=== PATIENT | female | born 1995 ===

== ENCOUNTER → 2024-03-28 | Outpatient (CLI) | payer OTHER ==
[2024-03-28 19:18] LABS: BASOPHILS ABSOLUTE AUTO 0.02 K/mm3 (0.00-0.23); BASOPHILS PERCENT AUTO 0 % (0-2); EOSINOPHILS PERCENT AUTO 1 % (0-6); Hematocrit 34.9 % (33.0-51.0); Hemoglobin 12.2 g/dL (11.5-16.0); IMMATURE GRAN ABSOLUTE AUTO 0.04 K/mm3 (0.00-0.10); IMMATURE GRAN PERCENT AUTO 1 % (0-1); LYMPHOCYTES ABSOLUTE AUTO 2.22 K/mm3 (0.84-5.20); LYMPHOCYTES PERCENT AUTO 26 % (21-46); MONOCYTES ABSOLUTE AUTO 0.58 K/mm3 (0.16-1.47); MONOCYTES PERCENT AUTO 7 % (4-13); Mean Corpuscular HGB 31.2 pg (26.0-34.0); Mean Corpuscular Volume 89 fL (80-100); Mean Platelet Volume 10.8 fL (9.1-12.4); NEUTROPHILS ABSOLUTE AUTO 5.68 K/mm3 (1.96-9.15); NEUTROPHILS PERCENT AUTO 66 % (41-73); Platelet Count 286 K/mm3 (150-400); RDW Standard Deviation 38.8 fL (35.1-46.3); Red Blood Cell Count 3.91 M/mm3 (3.80-5.20); White Blood Cell Count 8.64 K/mm3 (4.00-11.30)
[2024-04-01 07:19] LABS: HEPATITIS B SURFACE ANTIGEN Negative (Negative)
[2024-04-01 07:27] LABS: HEPATITIS C AB CIA INTERP Negative (Negative); HEPATITIS C ANTIBODY CIA INDEX 0.06 IV
[2024-04-01 07:58] LABS: HIV 1,2 COMBO ANTIGEN/ANTIBODY Negative (Negative)
== END | disposition home or self-care (01) ==
LOC: LAB 18:36 → LAB SHORT 18:36
PROVIDERS: Registered Nurse Community Health
DX: Z34.91 Encounter for supervision of normal pregnancy, unspecified, first trimester (principal)
CPT/HCPCS: 84443; 86803; 87340; 87389

== ENCOUNTER → 2024-03-28 | Outpatient (CLI) | payer OTHER | END | disposition home or self-care (01) | LOC: LAB 18:46 → LAB SHORT 18:46 | DX: Z34.91 Encounter for supervision of normal pregnancy, unspecified, first trimester (principal) | CPT/HCPCS: 87086 ==

== ENCOUNTER → 2024-04-07 | Outpatient (CLI) | payer OTHER ==
[2024-04-10 11:16] LABS: APTIMA MEDIA TYPE Urine; C. TRACHOMATIS BY TMA Negative (Negative); N. GONORRHOEAE BY TMA Negative (Negative); SPECIMEN SOURCE Urine
== END | disposition home or self-care (01) ==
LOC: LAB 18:41 → LAB SHORT 18:41
PROVIDERS: Registered Nurse Community Health
DX: Z34.91 Encounter for supervision of normal pregnancy, unspecified, first trimester (principal)
CPT/HCPCS: 87491; 87591

== ENCOUNTER 2024-06-20 17:03 | Emergency (ER) | payer OTHER ==
[~2024-06-20] VITALS: Ht 170.2 cm; Wt 90.7 kg
[2024-06-20 18:00] LABS: CORONAVIRUS COVID-19 AG Negative (NEGATIVE); INFLUENZA A AG Negative (NEGATIVE); INFLUENZA B AG Negative (NEGATIVE)
[2024-06-20] MEDS ORDERED: RX Prepack Albuterol 1 PREPACK/6.7 GM INH UD ONE (19:30)
== END 2024-06-20 19:35 | disposition home or self-care (01) ==
LOC: ER 17:03
PROVIDERS: Physician Assistant
DX: O99.512 Diseases of the respiratory system complicating pregnancy, second trimester (principal); J06.9 Acute upper respiratory infection, unspecified; Z3A.20 20 weeks gestation of pregnancy
CPT/HCPCS: 87428-QW; 99283; A9270

== ENCOUNTER → 2024-08-13 | Outpatient (CLI) | payer OTHER ==
[2024-08-13 19:17] LABS: Hematocrit 30.4 % (33.0-51.0); Hemoglobin 10.7 g/dL (11.5-16.0)
== END | disposition home or self-care (01) ==
LOC: LAB SHORT 18:34
PROVIDERS: Registered Nurse Community Health
DX: Z34.93 Encounter for supervision of normal pregnancy, unspecified, third trimester (principal)
CPT/HCPCS: 82950; 85014; 85018

== ENCOUNTER → 2024-10-09 | Outpatient (CLI) | payer OTHER ==
[~2024-10-09] MED LIST: ARTIFICIAL TEAR15 M6 BOTHEYES; Cefpodoxime Pr100 MG PO; ESCI10 PO; PRED20 PO; PRENATAL TABLE1 EAC2 PO; Prednisone10 MG PO; VALACYCLOVIR500 M1 PO; VISBIOME 112.51 EACH PO; [UNRECOGNIZED DRUG - OTHER] LEFTEYE
== END ==
LOC: LAB SHORT 17:28 → LAB 17:28
DX: Z34.91 Encounter for supervision of normal pregnancy, unspecified, first trimester (principal)
CPT/HCPCS: 87081; 87150

== ENCOUNTER 2024-10-11 10:36 | Emergency (ER) | payer OTHER ==
[~2024-10-11] VITALS: Ht 170.2 cm; Wt 97.5 kg
[2024-10-11] MEDS ORDERED: PRENATAL TABLE1 EAC2 PO (10:50)
[2024-10-11] MEDS ORDERED: ESCI10 PO (10:50)
[2024-10-11 11:31] LABS: BASOPHILS ABSOLUTE AUTO 0.03 K/mm3 (0.00-0.23); BASOPHILS PERCENT AUTO 0 % (0-2); EOSINOPHILS ABSOLUTE AUTO 0.06 K/mm3 (0.00-0.68); EOSINOPHILS PERCENT AUTO 1 % (0-6); Hematocrit 34.1 % (33.0-51.0); Hemoglobin 11.8 g/dL (11.5-16.0); IMMATURE GRAN ABSOLUTE AUTO 0.05 K/mm3 (0.00-0.10); IMMATURE GRAN PERCENT AUTO 1 % (0-1); LYMPHOCYTES ABSOLUTE AUTO 1.62 K/mm3 (0.84-5.20); LYMPHOCYTES PERCENT AUTO 21 % (21-46); MONOCYTES ABSOLUTE AUTO 0.54 K/mm3 (0.16-1.47); MONOCYTES PERCENT AUTO 7 % (4-13); Mean Corpuscular HGB Conc 34.6 g/dL (31.5-36.5); Mean Corpuscular Volume 90 fL (80-100); Mean Platelet Volume 10.9 fL (9.1-12.4); NEUTROPHILS ABSOLUTE AUTO 5.53 K/mm3 (1.96-9.15); NEUTROPHILS PERCENT AUTO 71 % (41-73); Platelet Count 250 K/mm3 (150-400); RDW Coefficient Variation 12.4 % (11.7-14.2); RDW Standard Deviation 40.1 fL (35.1-46.3); Red Blood Cell Count 3.81 M/mm3 (3.80-5.20); White Blood Cell Count 7.83 K/mm3 (4.00-11.30)
[2024-10-11 11:50] LABS: Albumin, Blood 2.7 g/dL (3.4-5.0); Albumin/Globulin Ratio 0.6 (0.8-1.8); Bilirubin, Total 0.2 mg/dL (0.1-1.0); Calcium, Blood 8.6 mg/dL (8.5-10.1); Creatinine, Blood 0.59 mg/dL (0.40-1.00); Globulin, Blood 4.3 g/dL (2.2-4.0)
[2024-10-11] MEDS ORDERED: PredniSONE 20 MG Tab PO ONE (12:05)
[2024-10-11] MEDS ORDERED: ValACYClovir HCL 500 MG Tab PO ONE (12:05)
[2024-10-11 12:16] LABS: D-Dimer, Quantitative 2.51 mg/L FEU (0.00-0.52); International Normalized Ratio 0.92; Prothrombin Time Results 9.9 Sec (9.7-11.5)
[2024-10-11 12:27] LABS: Source, Urine Clean Catch
[2024-10-11 12:29] LABS: Appearance, Urine Clear (Clear); Bilirubin, Urine Neg (Neg); Blood, Urine Neg (Neg); Color, Urine Yellow (P-Yellow); Glucose Qualitative, Urine Neg (Neg); Ketones, Urine Neg (Neg); Leukocyte Esterase, Urine 1+ (Neg); Nitrite, Urine Neg (Neg); Protein, Urine Neg (Neg); Urobilinogen, Urine NORM (Normal)
[2024-10-11 12:36] LABS: Bacteria Many /hpf; Red Blood Cells, Urine Not Seen /hpf (0-2); Squamous Epithelial Cells Mod /hpf (Few); White Blood Cells, Urine 0-2 /hpf (0-5)
[2024-10-11] MEDS ORDERED: [UNRECOGNIZED DRUG - OTHER] LEFTEYE (12:54)
[2024-10-11] MEDS ORDERED: VALACYCLOVIR500 M1 PO (12:54)
[2024-10-11] MEDS ORDERED: PRED20 PO (12:54)
== END 2024-10-11 13:42 | disposition home or self-care (01) ==
LOC: ER 10:36
PROVIDERS: Physician Assistant
DX: O99.353 Diseases of the nervous system complicating pregnancy, third trimester (principal); G51.0 Bell's palsy; Z3A.37 37 weeks gestation of pregnancy; Z79.899 Other long term (current) drug therapy
CPT/HCPCS: 80053; 81001; 85025; 85379; 85610; 85730; 87086; 99284; A9270; J7512

== ENCOUNTER 2024-10-12 19:35 | Observation (INO) | payer OTHER ==
[~2024-10-12] VITALS: Ht 170.2 cm; Wt 97.5 kg
[~2024-10-12 19:35] MED LIST changes: -ARTIFICIAL TEAR15 M6 BOTHEYES; -Cefpodoxime Pr100 MG PO; -Prednisone10 MG PO; -VISBIOME 112.51 EACH PO
[2024-10-12] MEDS ORDERED: Artificial Tears Opth Oint 7 GM LEFTEYE ONE (20:05)
[2024-10-12] MEDS ORDERED: Artificial Tear Opth Oint 3.5 GM LEFTEYE ONE (20:20)
[2024-10-12 20:45] LABS: BASOPHILS ABSOLUTE AUTO 0.02 K/mm3 (0.00-0.23); BASOPHILS PERCENT AUTO 0 % (0-2); EOSINOPHILS ABSOLUTE AUTO 0.04 K/mm3 (0.00-0.68); EOSINOPHILS PERCENT AUTO 0 % (0-6); Hematocrit 30.6 % (33.0-51.0); Hemoglobin 10.4 g/dL (11.5-16.0); IMMATURE GRAN ABSOLUTE AUTO 0.08 K/mm3 (0.00-0.10); IMMATURE GRAN PERCENT AUTO 1 % (0-1); LYMPHOCYTES ABSOLUTE AUTO 2.84 K/mm3 (0.84-5.20); LYMPHOCYTES PERCENT AUTO 28 % (21-46); MONOCYTES PERCENT AUTO 7 % (4-13); Mean Corpuscular HGB 30.6 pg (26.0-34.0); Mean Corpuscular Volume 90 fL (80-100); Mean Platelet Volume 10.8 fL (9.1-12.4); NEUTROPHILS ABSOLUTE AUTO 6.64 K/mm3 (1.96-9.15); NEUTROPHILS PERCENT AUTO 64 % (41-73); Platelet Count 241 K/mm3 (150-400); RDW Coefficient Variation 12.4 % (11.7-14.2); RDW Standard Deviation 40.3 fL (35.1-46.3); White Blood Cell Count 10.32 K/mm3 (4.00-11.30)
[2024-10-12 21:14] LABS: Albumin, Blood 2.7 g/dL (3.4-5.0); Albumin/Globulin Ratio 0.7 (0.8-1.8); Bilirubin, Total 0.2 mg/dL (0.1-1.0); Bun/Creatinine Ratio 12.1 (12.0-20.0); Calcium, Blood 8.4 mg/dL (8.5-10.1); Creatinine, Blood 0.58 mg/dL (0.40-1.00); Globulin, Blood 3.9 g/dL (2.2-4.0); Magnesium, Blood 1.8 mg/dL (1.6-2.4); Phosphorus, Blood 3.5 mg/dL (2.5-4.9); Potassium, Blood 3.5 mmol/L (3.5-5.5); Total Protein, Blood 6.6 g/dL (6.4-8.2)
[2024-10-12 21:44] LABS: Source, Urine Clean Catch
[2024-10-12 21:47] LABS: Bilirubin, Urine Neg (Neg); Blood, Urine 1+ (Neg); Glucose Qualitative, Urine Neg (Neg); Ketones, Urine Neg (Neg); Leukocyte Esterase, Urine 1+ (Neg); Nitrite, Urine Neg (Neg); Protein, Urine 1+ (Neg); Urobilinogen, Urine NORM (Normal)
[2024-10-12 21:56] LABS: Appearance, Urine Hazy (Clear); Color, Urine Yellow (P-Yellow)
[2024-10-12 21:57] LABS: Amorphous Light (0-Heavy); Bacteria Many /hpf; Red Blood Cells, Urine 0-2 /hpf (0-2); Squamous Epithelial Cells Few /hpf (Few)
[2024-10-12] MEDS ORDERED: ValACYClovir HCL 500 MG Tab PO ONE (23:10)
[2024-10-12] MEDS ORDERED: PredniSONE 20 MG Tab PO ONE (23:10)
[2024-10-12] MEDS ORDERED: Cephalexin Monohydrate 500 MG Cap PO ONE (23:25)
[2024-10-12] MEDS ORDERED: Acetaminophen 325 MG TABLET PO ONE (23:40)
[2024-10-13] MEDS ORDERED: Acetaminophen 325 MG TABLET PO PRN (00:10)
[2024-10-13 04:15] VITALS: BP 121/70
[2024-10-13 05:30] LABS: BASOPHILS ABSOLUTE AUTO 0.01 K/mm3 (0.00-0.23); BASOPHILS PERCENT AUTO 0 % (0-2); EOSINOPHILS PERCENT AUTO 0 % (0-6); Hemoglobin 10.3 g/dL (11.5-16.0); IMMATURE GRAN ABSOLUTE AUTO 0.07 K/mm3 (0.00-0.10); IMMATURE GRAN PERCENT AUTO 1 % (0-1); LYMPHOCYTES ABSOLUTE AUTO 0.98 K/mm3 (0.84-5.20); LYMPHOCYTES PERCENT AUTO 13 % (21-46); MONOCYTES ABSOLUTE AUTO 0.16 K/mm3 (0.16-1.47); MONOCYTES PERCENT AUTO 2 % (4-13); Mean Corpuscular HGB 30.7 pg (26.0-34.0); Mean Corpuscular HGB Conc 34.3 g/dL (31.5-36.5); Mean Corpuscular Volume 89 fL (80-100); NEUTROPHILS ABSOLUTE AUTO 6.42 K/mm3 (1.96-9.15); NEUTROPHILS PERCENT AUTO 84 % (41-73); Platelet Count 227 K/mm3 (150-400); RDW Coefficient Variation 12.5 % (11.7-14.2); RDW Standard Deviation 40.4 fL (35.1-46.3); Red Blood Cell Count 3.36 M/mm3 (3.80-5.20); White Blood Cell Count 7.64 K/mm3 (4.00-11.30)
[2024-10-13 05:58] LABS: Albumin, Blood 2.7 g/dL (3.4-5.0); Albumin/Globulin Ratio 0.6 (0.8-1.8); Bilirubin, Total 0.2 mg/dL (0.1-1.0); Bun/Creatinine Ratio 14.4 (12.0-20.0); Calcium, Blood 8.6 mg/dL (8.5-10.1); Creatinine, Blood 0.62 mg/dL (0.40-1.00); Globulin, Blood 4.2 g/dL (2.2-4.0); Magnesium, Blood 1.9 mg/dL (1.6-2.4); Potassium, Blood 3.9 mmol/L (3.5-5.5); Total Protein, Blood 6.9 g/dL (6.4-8.2)
[2024-10-13 07:50] VITALS: BP 122/72
--- NOTE | 2024-10-13 08:28 | NUR ---
PT ADMITTED THIS SHIFT WITH DX BELLS PALSY.PT IS AND OB HAS BEEN CONTACTED TO DO HEART TONES.PTS S/O IS AT BEDSIDE. PT IS ALERT AND ORIENTED,INTERACTS APPROPRIATELY WITH STAFF,PENDING MRI TODAY.PT L SIDED EFFECT /FACIAL DROOP AND UNCOORDINATED GAIT AFFECTING L.1 ASSIST OOB FOR VOIG WITHOUT DIFF.
[2024-10-13] MEDS ORDERED: Misc. Tablet PO SCH (09:00)
[2024-10-13] MEDS ORDERED: ValACYClovir HCL 500 MG Tab PO SCH (09:00)
[2024-10-13] MEDS ORDERED: Lactobacil 2-S.Thermo-Bifido 1 1 Cap PO SCH (09:00)
[2024-10-13] MEDS ORDERED: Prenatal Vit/FE Fumarate/FA 1 Tab PO SCH (09:00)
[2024-10-13] MEDS ORDERED: PredniSONE 20 MG Tab PO SCH (09:00)
[2024-10-13] MEDS ORDERED: Cefpodoxime Proxetil 200 MG Tab PO SCH (09:00)
--- NOTE | 2024-10-13 11:20 | NUR ---
LATE ENTRY: 11:00: PT TRANSPORTED TO MRI VIA WHEELCHAIR. PIERCINGS AND JEWELERY REMOVED. RN CONFIRMED WITH FAMILY SERVICE ASSISTANT THAT PT SIGNED A CONSENT FORM FOR THE MRI.
[2024-10-13] MEDS ORDERED: Peg 400/Hypromellose/Glycerin 15 DROP/ML BTL BOTHEYES PRN (12:10)
--- NOTE | 2024-10-13 13:43 | NUR ---
PT REPORTED TO NURSE THAT SHE HAD THICK WHITE VAGINAL DISCHARGE. NO WATERY FLUID. RN CALLED TO REPORT TO [facility], WHO PROVIDED REASSURANCE. OB IS PROMISE MARTINEZ. [facility] RN STATED SHE WOULD UPDATE PROMISE MARTINEZ TO DISCUSS IF AN NST WAS NEEDED DURING THE SHIFT.
[2024-10-13 14:47] LABS: Protein, Urine Random 25.3 mg/dL (0.0-11.9); Protein/Creat Ratio, Ur Random 0.1
[2024-10-13 15:23] VITALS: BP 138/67
--- NOTE | 2024-10-13 17:24 | NUR ---
PT IS ALERT AND ORIENTED X4. ROOM AIR. 37 WEEKS . OB IS PROMISE MARTINEZ. PT TOLERATING PO INTAKE. STARTED A 24 HOUR URINE COLLECTION AT 13:30 TODAY, URINE IS ON ICE IN PT'S BATHROOM. PT REPORTING LOWER BACK PAIN 3-4/10, WITH RELIEF FROM TYLENOL AND ICE PACK. PT'S LEFT LEG IS DESCRIBED "WEAK" BUT IS NO LONGER HEAVY, AND NUMBNESS/TINGLING HAS RESOLVED. PT HAS A LEFT SIDED FACIAL DROOP, WITH A RIGHT EYE BLINKING FREQUENTLY DUE TO DRYNESS. NO NEW COMPLAINTS OR ACUTE CHANGES.
[2024-10-13 19:24] VITALS: BP 115/71
[2024-10-14 02:17] VITALS: BP 116/65
--- NOTE | 2024-10-14 03:34 | NUR ---
SHIFT SUMMARY PATIENT HAS APPEARED TO SLEEP COMFORTABLY DURING THE NIGHT. SHE WAKES UP EASILY WHEN HER ROOM IS ENTERED. SIGNIFICANT OTHER IS AT THE BEDSIDE. VITAL SIGNS HAVE BEEN STABLE. CALL LIGHT IS WITHIN REACH. SAFETY PRECAUTIONS ARE BEING MAINTAINED.
[2024-10-14 05:29] LABS: BASOPHILS ABSOLUTE AUTO 0.02 K/mm3 (0.00-0.23); BASOPHILS PERCENT AUTO 0 % (0-2); EOSINOPHILS ABSOLUTE AUTO 0.01 K/mm3 (0.00-0.68); EOSINOPHILS PERCENT AUTO 0 % (0-6); Hemoglobin 9.4 g/dL (11.5-16.0); IMMATURE GRAN ABSOLUTE AUTO 0.11 K/mm3 (0.00-0.10); IMMATURE GRAN PERCENT AUTO 1 % (0-1); LYMPHOCYTES ABSOLUTE AUTO 2.59 K/mm3 (0.84-5.20); LYMPHOCYTES PERCENT AUTO 27 % (21-46); MONOCYTES ABSOLUTE AUTO 0.95 K/mm3 (0.16-1.47); MONOCYTES PERCENT AUTO 10 % (4-13); Mean Corpuscular HGB 30.9 pg (26.0-34.0); Mean Corpuscular HGB Conc 34.8 g/dL (31.5-36.5); Mean Corpuscular Volume 89 fL (80-100); Mean Platelet Volume 10.7 fL (9.1-12.4); NEUTROPHILS PERCENT AUTO 62 % (41-73); Platelet Count 206 K/mm3 (150-400); RDW Coefficient Variation 12.5 % (11.7-14.2); RDW Standard Deviation 40.4 fL (35.1-46.3); Red Blood Cell Count 3.04 M/mm3 (3.80-5.20); White Blood Cell Count 9.58 K/mm3 (4.00-11.30)
[2024-10-14 05:56] LABS: Albumin, Blood 2.3 g/dL (3.4-5.0); Albumin/Globulin Ratio 0.7 (0.8-1.8); Bilirubin, Total 0.1 mg/dL (0.1-1.0); Bun/Creatinine Ratio 17.9 (12.0-20.0); Calcium, Blood 8.2 mg/dL (8.5-10.1); Creatinine, Blood 0.5 mg/dL (0.40-1.00); Globulin, Blood 3.5 g/dL (2.2-4.0); Potassium, Blood 3.7 mmol/L (3.5-5.5); Total Protein, Blood 5.8 g/dL (6.4-8.2)
[2024-10-14 07:31] VITALS: BP 109/77
[2024-10-14] MEDS ORDERED: Misc. Tablet PO SCH (09:00)
[2024-10-14] MEDS ORDERED: PredniSONE 20 MG Tab PO SCH (09:00)
[2024-10-14] MEDS ORDERED: Citalopram Hydrobromide 20 MG Tab PO SCH (09:00)
[2024-10-14] MEDS ORDERED: Dextran/Hypromellose/Glycerin 15 DROP/ML BTL BOTHEYES PRN (13:40)
[2024-10-14 15:49] LABS: Protein, Urine Quantitative 13.7 mg/dL (0.0-11.9)
[2024-10-14 16:26] VITALS: BP 109/73
[2024-10-14] MEDS ORDERED: ARTIFICIAL TEAR15 M6 BOTHEYES (17:49)
[2024-10-14] MEDS ORDERED: Prednisone10 MG PO (17:50)
[2024-10-14] MEDS ORDERED: Cefpodoxime Pr100 MG PO (17:50)
[2024-10-14] MEDS ORDERED: VISBIOME 112.51 EACH PO (17:51)
--- NOTE | 2024-10-14 18:10 | NUR ---
PT DISCHARGED TO HOME. DISCHARGE INSTRUCTIONS PROVIDED AND EDUCATED ON AT TIME OF DISCHARGE. ALL VALUABLES RETURNED AND SENT HOME WITH THE PT.
[2024-10-14 22:56] LABS: ANTI-NUCLEAR AB ANA,IGG ELISA None Detected (None Detected)
[2024-10-15 19:53] LABS: IMMUNOGLOBULIN G 939 mg/dL (768-1632)
[2024-10-15 20:28] LABS: CMV ANTIBODY IGG <0.20 U/mL (<=0.70); CMV ANTIBODY IGM <8.0 AU/mL (<=29.9)
[2024-10-15 21:00] LABS: EBV AB TO EARLY (D) AG IGG 17.6 U/mL (0.0-10.9); EBV AB TO VIRAL CAPSID AG IGM 11.9 U/mL (0.0-43.9); EBV ANTIBODY TO NUCLEAR AG IGG >600.0 U/mL (0.0-21.9)
[2024-10-16 06:00] LABS: MYELOPEROXIDASE (MPO) AB,IGG 0 AU/mL (0-19); SERINE PROTEINASE 3 PR3 AB,IGG 0 AU/mL (0-19)
[2024-10-16 06:27] LABS: FACTIN SMOOTH MUSCLE,IGG ELISA 10 Units (0-19); MITOCHONDRIAL (M2) AB,IGG 3.6 Units (0.0-24.9)
== END 2024-10-14 18:20 | disposition home or self-care (01) ==
LOC: ER 19:35 → MEDS 19:36 → ERHOLD 19:36 → MEDS 10-13 04:14
PROVIDERS: Student in an Organized Health Care Education/Training Program; ADMIT Student in an Organized Health Care Education/Training Program
DX: O26.893 Other specified pregnancy related conditions, third trimester (principal); R53.1 Weakness; R82.71 Bacteriuria; O99.353 Diseases of the nervous system complicating pregnancy, third trimester; G51.0 Bell's palsy; O99.343 Other mental disorders complicating pregnancy, third trimester; F32.9 Major depressive disorder, single episode, unspecified; Z3A.37 37 weeks gestation of pregnancy; Z79.899 Other long term (current) drug therapy
CPT/HCPCS: 36415; 70551; 80053; 81001; 82570; 82784; 83516; 83735; 84100; 84156; 85025; 85651; 86015; 86038; 86140; 86381; 86644; 86645; 86663; 86664; 86665; 87086; 93971; 99285; A9270; G0378; J7512

== ENCOUNTER → 2024-10-27 | Outpatient (CLI) | payer OTHER ==
[~2024-10-27] MED LIST changes: +ARTIFICIAL TEAR15 M6 BOTHEYES; +Cefpodoxime Pr100 MG PO; +Prednisone10 MG PO; +VISBIOME 112.51 EACH PO
[2024-10-27 15:14] LABS: Protein, Urine Quantitative <5.0 mg/dL (0.0-11.9)
== END | disposition home or self-care (01) ==
LOC: LAB SHORT 09:00 → LAB 09:00
PROVIDERS: Registered Nurse Community Health
DX: O16.3 Unspecified maternal hypertension, third trimester (principal)
CPT/HCPCS: 81050; 84156

== ENCOUNTER 2024-11-10 10:25 | Inpatient (IN) | payer OTHER ==
[2024-11-10] VITALS (22 sets, daily range): BP systolic 99–142; BP diastolic 55–87
[~2024-11-10] VITALS: Ht 170.2 cm; Wt 97.5 kg
[2024-11-10 11:27] LABS: Source, Urine Clean Catch
[2024-11-10 11:36] LABS: Bilirubin, Urine Neg (Neg); Blood, Urine Neg (Neg); Glucose Qualitative, Urine Neg (Neg); Ketones, Urine Neg (Neg); Leukocyte Esterase, Urine Neg (Neg); Nitrite, Urine Neg (Neg); Protein, Urine 1+ (Neg); Urobilinogen, Urine NORM (Normal); pH, Urine 6.5 (5.0-8.0)
[2024-11-10 11:38] LABS: Appearance, Urine Clear (Clear); Color, Urine Yellow (P-Yellow)
[2024-11-10] MEDS ORDERED: Oxytocin 10 Unit / ML Vial IM PRN (12:00)
[2024-11-10] MEDS ORDERED: Tranexamic Acid 100 ML IV SCH (12:00)
[2024-11-10] MEDS ORDERED: Lactated Ringer's 1,000 ML IV PRN (12:00)
[2024-11-10] MEDS ORDERED: Misoprostol 200 MCG Tab BC PRN (12:00)
[2024-11-10] MEDS ORDERED: Carboprost Tromethamine 250 MCG/ML 1ML Amp IM PRN (12:00)
[2024-11-10] MEDS ORDERED: Misoprostol 200 MCG Tab PR PRN ×2 (12:00→21:25)
[2024-11-10] MEDS ORDERED: Acetaminophen 500 MG Tab PO PRN (12:00)
[2024-11-10] MEDS ORDERED: OXYTOCIN/RINGER'S LACTATE 500 ML IV PRN (12:00)
[2024-11-10] MEDS ORDERED: Calcium Carbonate 500 MG Tab Chew PO PRN (12:00)
[2024-11-10] MEDS ORDERED: Ondansetron HCl 2 MG / ML 2ML Vial IV PRN (12:00)
[2024-11-10] MEDS ORDERED: Methylergonovine Maleate 0.2MG / ML 1ML Amp IM PRN ×2 (12:00→21:25)
[2024-11-10 12:55] LABS: BASOPHILS ABSOLUTE AUTO 0.02 K/mm3 (0.00-0.23); BASOPHILS PERCENT AUTO 0 % (0-2); EOSINOPHILS ABSOLUTE AUTO 0.02 K/mm3 (0.00-0.68); EOSINOPHILS PERCENT AUTO 0 % (0-6); Hemoglobin 12.1 g/dL (11.5-16.0); IMMATURE GRAN ABSOLUTE AUTO 0.03 K/mm3 (0.00-0.10); IMMATURE GRAN PERCENT AUTO 0 % (0-1); LYMPHOCYTES ABSOLUTE AUTO 1.48 K/mm3 (0.84-5.20); LYMPHOCYTES PERCENT AUTO 17 % (21-46); MONOCYTES ABSOLUTE AUTO 0.65 K/mm3 (0.16-1.47); MONOCYTES PERCENT AUTO 7 % (4-13); Mean Corpuscular HGB 31.3 pg (26.0-34.0); Mean Corpuscular HGB Conc 35.6 g/dL (31.5-36.5); Mean Corpuscular Volume 88 fL (80-100); NEUTROPHILS ABSOLUTE AUTO 6.63 K/mm3 (1.96-9.15); NEUTROPHILS PERCENT AUTO 75 % (41-73); Platelet Count 222 K/mm3 (150-400); Red Blood Cell Count 3.86 M/mm3 (3.80-5.20); White Blood Cell Count 8.83 K/mm3 (4.00-11.30)
[2024-11-10] MEDS ORDERED: Lactated Ringer's 1,000 ML IV SCH ×3 (13:25→21:25)
[2024-11-10] MEDS ORDERED: FentaNYL 2mcg/ml-Bup 0.1% Epd 250 ML EPI PRN (13:25)
[2024-11-10] MEDS ORDERED: ePHEDrine Sulfate 50 MG/ML 1ML Injection XX PRN (13:25)
[2024-11-10] MEDS ORDERED: Witch Hazel/Glycerin PADS TOP PRN (21:15)
[2024-11-10] MEDS ORDERED: OXYTOCIN/RINGER'S LACTATE 500 ML IV SCH (21:15)
[2024-11-10] MEDS ORDERED: Docusate Sodium 100 MG Cap PO PRN (21:20)
[2024-11-10] MEDS ORDERED: Diphth,Pertuss(Acell),Tet Vac 0.5 ML VIAL IM ONE (21:20)
[2024-11-10] MEDS ORDERED: Lanolin Cream TOP PRN (21:20)
[2024-11-10] MEDS ORDERED: OxyCODONE 5 mg/Acetamin 325 mg TABLET PO PRN (21:20)
[2024-11-10] MEDS ORDERED: Benzocaine Topical Anesthetic Spray 60GM TOP PRN (21:20)
[2024-11-10] MEDS ORDERED: Oxytocin 10 Unit / ML Vial IM ONE (21:20)
[2024-11-10] MEDS ORDERED: Acetaminophen/Codeine 300-30 mg PO PRN (21:20)
[2024-11-10] MEDS ORDERED: Acetaminophen 325 MG TABLET PO PRN (21:25)
[2024-11-10] MEDS ORDERED: Rho(D) Immune Globulin 300 MCG / SYR IM ONE (21:25)
[2024-11-10] MEDS ORDERED: Ketorolac Tromethamine 30mg Vial IV PRN (21:25)
[2024-11-10] MEDS ORDERED: Measles/Mumps/Rubella Vaccine 0.5 ML Vial SC ONE (21:25)
[2024-11-10] MEDS ORDERED: Ibuprofen 400 MG Tab PO PRN (21:25)
[2024-11-11 00:01] VITALS: BP 126/74
--- NOTE | 2024-11-11 00:43 | NUR ---
FOCUS: NO VOID @2340: PT HAD SHOWERED AND WAS TOLD TO ATTEMPT TO VOID ON THE TOILET. PT WAS UNABLE TO VOID. PT BACK TO BED. FUNDUS FIRM @ UMBILICUS AND MIDLINE. SMALL PV FLOW. BLADDER DOES NOT APPEAR TO BE DISTENDED. FC IN LABOUR WAS REMOVED SHORTLY AFTER PT STARTED PUSHING ~1842. A: WILL RE-ATTEMPT VOID @ 0040. PT TO INCREASE PO INTAKE IN THE MEANTIME. R: PT IN AGREEMENT WITH ABOVE P: IF PT UNABLE TO VOID @ 0040, LEAD INSTALLER WILL PERFORM A BLADDER SCAN. WILL PERFORM AN I&O CATH BASED ON RETAINED URINE VOLUME ( PER GUIDELINES)
--- NOTE | 2024-11-11 01:16 | NUR ---
FOCUS: VOID D: @0110: PT VOIDED A MODERATE AMOUNT OF BLOOD TINGED URINE A: NONE AT THIS TIME R: PT REPORTS SHE NOW FEELS THE SENSATION TO VOID P: CONTINUE TO ATTEMPT TO VOID Q4H AND PRN. USE NO BOTTLE + NO MEDS FOR COMFORT.
[2024-11-11 04:08] VITALS: BP 118/63
--- NOTE | 2024-11-11 04:15 | NUR ---
FOCUS: MMR VACCINATION STATUS D: PT'S ANTENATALS STATE "IMMUNE" FOR RUBELLA STATUS, HOWEVER FIELD EDUCATION DIRECTOR SAW A NOTE FOR "RUBELA PP". A: FIELD EDUCATION DIRECTOR REVIEWED LABS. RUBELLA TITRE <10. PT REQUIRES MMR R: PT IN AGREEMENT TO REC. MMR VACCINE PP P: FIELD EDUCATION DIRECTOR WILL ADMINISTER MMR + RHOGAM AFTER BLOODWORK IS COLLECTED THIS MORNING
[2024-11-11 06:00] LABS: BASOPHILS ABSOLUTE AUTO 0.01 K/mm3 (0.00-0.23); BASOPHILS PERCENT AUTO 0 % (0-2); EOSINOPHILS ABSOLUTE AUTO 0.04 K/mm3 (0.00-0.68); EOSINOPHILS PERCENT AUTO 0 % (0-6); Hematocrit 28.6 % (33.0-51.0); IMMATURE GRAN ABSOLUTE AUTO 0.05 K/mm3 (0.00-0.10); IMMATURE GRAN PERCENT AUTO 0 % (0-1); LYMPHOCYTES ABSOLUTE AUTO 1.92 K/mm3 (0.84-5.20); LYMPHOCYTES PERCENT AUTO 16 % (21-46); MONOCYTES ABSOLUTE AUTO 1.13 K/mm3 (0.16-1.47); MONOCYTES PERCENT AUTO 9 % (4-13); Mean Corpuscular HGB 31.1 pg (26.0-34.0); Mean Corpuscular Volume 89 fL (80-100); Mean Platelet Volume 10.8 fL (9.1-12.4); NEUTROPHILS ABSOLUTE AUTO 8.97 K/mm3 (1.96-9.15); NEUTROPHILS PERCENT AUTO 74 % (41-73); Platelet Count 229 K/mm3 (150-400); RDW Coefficient Variation 13.2 % (11.7-14.2); RDW Standard Deviation 43.2 fL (35.1-46.3); Red Blood Cell Count 3.22 M/mm3 (3.80-5.20); White Blood Cell Count 12.12 K/mm3 (4.00-11.30)
--- NOTE | 2024-11-11 06:31 | NUR ---
FOCUS: MEDICATION ADMINISTRATION D: AFTER FURTHER REVIEW OF THE CHART, PT REQUIRES AN ORDER FOR LEXIPRO 10 MG PO X ONCE DAILY (SHE STARTED THIS SOMETIME IN HER ). PT WILL ALSO REQUIRE A VACCINE CONSENT FORM TO BE SIGNED WITH THE PROVIDER FOR THE MMR VACCINE. A: MUSIC ASSISTANT NOTIFIED MRP FOR ORDERS P: MRP WILL BE IN LATER TODAY AND WILL SIGN THE CONSENT WITH THE PATIENT.
[2024-11-11 07:35] VITALS: BP 102/54
[2024-11-11] MEDS ORDERED: Prenatal Vit/FE Fumarate/FA 1 Tab PO SCH (09:00)
--- NOTE | 2024-11-11 10:10 | NUR ---
PPD SCORE OF 12 RECEIVED BY RN SOCIAL SERVICE FERNANDO PLACED LEFT VOICEMAIL FOR AT 0933 PATIENT STATES SHE HAS WEEKLY APPOINTMENTS SET UP AT [facility] WITH A COUNSELOR.
--- NOTE | 2024-11-11 11:00 | NUR ---
ALYSIA FROM SALES ORDER CLERK/ CARE MANAGEMENT SEEN PATIENT AND STATES SHE GAVE HER RESOURCES AND SHE IS CLEARED.
[2024-11-11] MEDS ORDERED: ESCITALOPRAM 10MG TAB PO SCH (11:25)
[2024-11-11 11:30] VITALS: BP 123/56
[2024-11-11] MEDS ORDERED: Rho(D) Immune Globulin 300 MCG / SYR IV ONE (12:10)
--- NOTE | 2024-11-11 14:09 | NUR ---
Bentley BLACKWELL CNM, NOTIFIED OF PP [place] SCORE OF 12 AND PT'S REPORT OF FEELING LIKE SHE CAN'T EMPTY HER BLADDER AND FEELS LIKE SHE HAS A UTI. PROVIDER ALSO NOTIFIED THAT PT DESIRES D/C HOME THIS EVENING, AT THIS TIME. ORDERS RECEIVED.
[2024-11-11 15:44] LABS: Source, Urine Clean Catch
[2024-11-11 15:48] LABS: Appearance, Urine Hazy (Clear); Bilirubin, Urine Neg (Neg); Blood, Urine 5+ (Neg); Color, Urine Yellow (P-Yellow); Glucose Qualitative, Urine Neg (Neg); Ketones, Urine Neg (Neg); Leukocyte Esterase, Urine 3+ (Neg); Nitrite, Urine Neg (Neg); Protein, Urine 3+ (Neg); Specific Gravity, Urine 1.015 (1.003-1.022); Urobilinogen, Urine NORM (Normal)
[2024-11-11 16:02] LABS: Red Blood Cells, Urine TNTC /hpf (0-2); Squamous Epithelial Cells Few /hpf (Few); White Blood Cells, Urine 25-50 /hpf (0-5)
[2024-11-11 16:03] LABS: Bacteria Many /hpf; Mucus Light (0-Heavy); Transitional Epithelial Cells Rare /hpf (0-Rare)
[2024-11-11 16:34] VITALS: BP 113/59
[2024-11-11 19:37] VITALS: BP 122/58
== END 2024-11-11 21:00 | disposition home or self-care (01) | DRG 807 ==
LOC: BC 10:25 → OBS 10:25 → BC 11:55
PROVIDERS: ADMIT Registered Nurse Community Health
PROC: 10E0XZZ Delivery of Products of Conception, External Approach (ICD-10-PCS; principal; 2024-11-10)
PROC: 0KQM0ZZ Repair Perineum Muscle, Open Approach (ICD-10-PCS; 2024-11-10)
PROC: 4A1HXCZ Monitoring of Products of Conception, Cardiac Rate, External Approach (ICD-10-PCS; 2024-11-10)
PROC: 3E0334Z Introduction of Serum, Toxoid and Vaccine into Peripheral Vein, Percutaneous Approach (ICD-10-PCS; 2024-11-11)
DX: O48.0 Post-term pregnancy (principal); Z37.0 Single live birth; Z3A.40 40 weeks gestation of pregnancy; O76 Abnormality in fetal heart rate and rhythm complicating labor and delivery; O69.81X0 Labor and delivery complicated by cord around neck, without compression, not applicable or unspecified; O77.0 Labor and delivery complicated by meconium in amniotic fluid; O70.1 Second degree perineal laceration during delivery; O99.344 Other mental disorders complicating childbirth; F31.9 Bipolar disorder, unspecified; F41.8 Other specified anxiety disorders; O26.893 Other specified pregnancy related conditions, third trimester; Z67.41 Type O blood, Rh negative; Z23 Encounter for immunization
CPT/HCPCS: 36415; 51702; 59025; 81001; 85025; 85460; 86850; 86900; 86901; 90471; 90707; 99214; A9270; J1885; J2405; J2590; J2791; J7120